=== PATIENT | female | born 1950 | race Caucasian/White ===

== ENCOUNTER 2016-05-30 10:29 | Day surgery (SDC) | payer OTHER ==
[2013-06-28 13:47] VITALS: BMI 21.3
[2016-05-30] MEDS ORDERED: DIPRIVAN 20 ML VIAL IVP ONE (12:35)
[2016-05-30] MEDS ORDERED: LIDOCAINE HCL 2% LUER-JET ONE (12:35)
[2016-05-30] MEDS ORDERED: VERSED ONE (12:35)
[2016-05-30 13:30] VITALS: BP 147/71; TEMP 98.2
--- NOTE | 2016-05-31 09:52 | OP ---
INDICATIONS FOR PROCEDURE: 65 year old female presents for endoscopy evaluation of an abnormal PET scan. The PET scan did show increase uptake in her stomach. She is asymptomatic. She tells me that everything thing else going well. She is scheduled for endoscopy exam. MEDICATIONS: SEE ANESTHESIA NOTES. PROCEDURE: ENDOSCOPY, CL BIOPSY REPORT: The risks, benefits, alternatives and limitations were discussed in detail with the patient. Informed consent was obtained. After adequate sedation was achieved, the video endoscope was introduced in the posterior pharynx and esophagus under direct vision and easily advanced down to the second portion of the duodenum. I then slowly withdrew. The duodenal mucosa appeared unremarkable as did the duodenal bulb. The antrum body is relatively unremarkable. There is mild erythema present. Therefore I biopsied the antrum and body for H.Pylori testing. The scope was retroflexed to look at the cardia and fundus which was unremarkable. The scope was anteflexed and withdrawn back through the esophagus there is about a 1cm sliding hiatal hernia. The esophagus was otherwise unremarkable. The patient tolerated the procedure well with stable vital signs and pulse oximetry throughout. IMPRESSION: 1. 1cm sliding hiatal hernia 2. Minimal gastritis based on erythema 3. Nothing to account for the abnormal PET scan RECOMMENDATIONS: 1. From a GI stand point I recommend reflux precautions 2. We will await H.Pylori results if it s positive will initiate treatment 3. We will see her back in the office as needed. CC: Dr. Pako HAYDEN
== END 2016-05-30 13:48 | disposition home or self-care (01) ==
LOC: SURG 10:29
PROVIDERS: ATTEND Internal Medicine Gastroenterology
DX: R93.3 Abnormal findings on diagnostic imaging of other parts of digestive tract (principal); K44.9 Diaphragmatic hernia without obstruction or gangrene; K29.00 Acute gastritis without bleeding
CPT/HCPCS: 87339

== ENCOUNTER 2017-06-30 16:55 | Emergency (ER) | payer OTHER ==
[2017-06-30 17:03] VITALS: TEMP 99; BMI 20.4
[2017-06-30] MEDS ORDERED: CATAPRES PO STA (17:12)
--- NOTE | 2017-06-30 17:15 | ED.PDOC ---
General ED Provider: Dr. SAIMA DEL ROSARIO-ER Chief Complaint: Hypertension Stated Complaint: i have htn--they started me on norvasc--they told me it may not be strong enough 5mg norvasc Time Seen by Physician: 17:15 Mode of Arrival: Walk-In Information Source: Patient Exam Limitations: No limitations Primary Care Provider: SIVAN CASILLAS Nursing and Triage Documentation Reviewed and Agree: Yes Reviewed sepsis parameters & appropriate labs ordered?: Yes System Inflammatory Response Syndrome: Not Applicable Sepsis Protocol: For patient's 13 years and over: Temp is 96.8 and below OR 101 and greater Pulse >90 BPM Resp >20/minute Acutely Altered Mental Status Are patient's symptoms suggestive of a new infection, such as: -Pneumonia -Skin, Soft Tissue -Endocarditis -UTI -Bone, Joint Infection -Implantable Device -Acute Abdominal Infection -Wound Infection -Meningitis -Blood Stream Catheter Infection -Unknown Cardiovascular Complaint Exam - Hypertension Complaint/Exam Onset/Duration: several days Symptoms Are: Still present Timing: Intermittent Reported B/P Prior to Arrival: 160/90 Aggravating: Reports: None Alleviating: Reports: None Associated Signs and Symptoms: Denies: Chest pain, Vision changes, Anxiety, Recent stress, Headache, Numbness, Tingling, Weakness, Dizziness, Short of air, Swelling Related History: Reports: Current Igor Inhibitors Cardiac Risk Factors: Reports: Hypertension Recent Change in Medications: No A/V Nicking: No Papilledema Present: No JVD Present: No Carotid Bruit Present: No Femoral Pulses Bounding: No Differential Diagnoses: Hypertension Review of Systems - Review Of Systems Constitutional: Reports: No symptoms Eyes: Reports: No symptoms Ears, Nose, Mouth, Throat: Reports: No symptoms Respiratory: Reports: No symptoms Cardiac: Reports: No symptoms GI: Reports: No symptoms : Reports: No symptoms Musculoskeletal: Reports: No symptoms Skin: Reports: No symptoms Neurological: Reports: No symptoms Endocrine: Reports: No symptoms Hematologic/Lymphatic: Reports: No symptoms All Other Systems: Reviewed and Negative Past Medical History - Past Medical History Previously Healthy: No Endocrine: Reports: Unknown Cardiovascular: Reports: Hypertension Respiratory: Reports: Other Hematological: Reports: Unknown Gastrointestinal: Reports: Unknown Genitourinary: Reports: Unknown Neuro/Psych: Reports: Unknown Musculoskeletal: Reports: Unknown Cancer: Reports: Unknown Last Menstrual Period: n/a - Surgical History General Surgical History: Reports: Lap Band - Family History Family History: Reports: Unknown - Social History Smoking Status: Current every day smoker Hx Substance Use: No Alcohol Screening: None Physical Exam - Physical Exam Appearance: Well-appearing, No pain distress, Well-nourished Eyes: WILMA, EOMI, Conjunctiva clear ENT: Ears normal, Nose normal, Oropharynx normal Neck: Supple Respiratory: Airway patent, Breath sounds clear, Breath sounds equal, Respirations nonlabored Cardiovascular: RRR GI/: Soft Musculoskeletal: Normal strength Skin: Warm, Dry, Normal color Neurological: Sensation intact, Motor intact, Reflexes intact, Cranial nerves intact, Alert, Oriented Psychiatric: Affect appropriate, Mood appropriate Re-Evaluation - Re-Evaluation Time of Re-Evaluation: 18:00 Status: Improved (bp 150/80--denies cp or brown) Vital Signs Stable: Yes Pain Level: 0 Appearance: NAD Lungs: Clear Skin: Warm and Dry Neuro: Alert and Oriented X3 CV: RRR Critical Care Note - Critical Care Note Total Time (mins): 0 Course - Course Orders, Labs, Meds: Orders Category Date Time Status Clonidine HCl [Catapres] MEDS 06/30/17 17:12 Discontinued 0.1 mg PO ONCE STA Medications Discontinued Medications Generic Name Dose Route Start Last Admin Trade Name Freq PRN Reason Stop Dose Admin Clonidine 0.1 mg 06/30/17 17:12 06/30/17 17:18 Catapres PO 06/30/17 17:13 0.1 mg ONCE STA Administration Vital Signs: Temp Pulse Resp BP Pulse Ox 06/30/17 16:56 99.0 F 76 20 173/69 H 93 L MELANIE Risk Score MELANIE Risk Score: Risk Score Odds of by 30D 0 0.1 (0.1-0.2) 1 0.3 (0.2-0.3) 2 0.4 (0.3-0.5) 3 0.7 (0.6-0.9) 4 1.2 (1.0-1.5) 5 2.2 (1.9-2.6) 6 3.0 (2.5-3.6) 7 4.8 (3.8-6.1) Departure - Departure Time of Disposition: 18:00 Disposition: HOME SELF-CARE Discharge Problem: HTN (hypertension) Qualifiers: Hypertension type: essential hypertension Qualified Code(s): I10 - Essential ( primary) hypertension Instructions: Chronic Hypertension (ED), Mediterranean Diet (DC) Condition: Good Pt referred to PMD for follow-up: Yes IPMP verified?: No Additional Instructions: avoid over 4gr sodium--increase norvasc 5mg bid --monitor bp --if systolic is over 160 or diastiolic is over 90--take clonidine q 6hrs as needed--f/u with dr casillas next week Allergies/Adverse Reactions: Allergies codeine Adverse Reaction (Verified 06/30/17 17:01) Iodinated Contrast- Oral and IV Dye Adverse Reaction (Verified 06/30/17 17:01) antibodic Adverse Reaction (Uncoded 02/10/13 20:40) Home Medications: Ambulatory Orders Amlodipine Besylate 5 mg PO DAILY 06/30/17 Docusate Sodium [Colace] 100 mg PO DAILY 06/30/17 Hydrocodone Bit/Acetaminophen [[place] 5-325] 1 tab PO PRN PRN 06/30/17 Ibuprofen 600 mg PO Q6H PRN 06/30/17 Disposition Discussed With: Patient, Family
[2017-06-30 18:06] VITALS: BP 142/58
== END 2017-06-30 18:09 | disposition home or self-care (01) ==
LOC: ED 16:55
DX: I10 Essential (primary) hypertension (principal); F17.210 Nicotine dependence, cigarettes, uncomplicated
CPT/HCPCS: 99283

== ENCOUNTER 2018-09-10 08:50 | Day surgery (SDC) ==
[2018-09-10 10:56] VITALS: TEMP 98.6
[2018-09-10] MEDS ORDERED: DIPRIVAN 20 ML VIAL IVP ONE (11:30)
[2018-09-10 12:13] VITALS: BP 127/50
--- NOTE | 2018-09-11 11:55 | OP ---
INDICATIONS FOR PROCEDURE: 67 year old female presents for colonoscopy exam. She underwent her first colonoscopy last year finding multiple polyps with two large adenomatous about 2cm in size. She presents for followup examination. MEDICATIONS: SEE ANESTHESIA NOTES. PROCEDURE: COLONOSCOPY. SNARE POLYPECTOMY. REPORT: The risks, benefits, alternatives and limitations were discussed in detail with the patient. Informed consent was obtained. After adequate sedation was achieved, a digital rectal exam revealed good tone, no masses. The colonoscope was introduced into the rectum and advanced under direct visual guidance to the cecum. The cecum was identified by the appendiceal orifice and IC valve. I then slowly withdrew the scope in circumferential manner and examined the mucosa quite carefully. I looked on the proximal and distal sides of folds and flexures as best as possible. I was able to retroflex the scope in the right colon and the left colon to increase visualization. In the midtransverse colon there was two polyps both sessile to semi-sessile. They were both about 8-9mm in size. I removed these by snare technique. They appeared benign. In the mid left colon roughly at 26cm there was a [place] In[employer] tattoo. There was no residual polyp tissue in the area. On retroflex view of the anal canal there was a small non-engorged internal hemorrhoids. The prep was good. The withdraw time was 11 minutes and 51 seconds. The patient tolerated the procedure well with stable vital signs and pulse oximetry throughout. IMPRESSION: 1. 2 polyps removed 2. Small internal hemorrhoids. RECOMMENDATIONS: 1. High fiber diet 2. Office visit as needed 3. Colonoscopy examination again in 3 years. Sooner if there are any signs or symptoms to indicate otherwise. CC: Dr. Letha HAYDEN
== END 2018-09-10 12:45 | disposition home or self-care (01) ==
LOC: SURG 08:50
PROVIDERS: ATTEND Internal Medicine Gastroenterology
DX: Z86.010 Personal history of colon polyps (principal); K64.8 Other hemorrhoids; D12.3 Benign neoplasm of transverse colon; K63.5 Polyp of colon